=== PATIENT | female | born 1990 ===

== ENCOUNTER 2017-05-29 15:12 | Outpatient (CLI) | payer BC ==
[~2017-05-29] VITALS: Ht 165.1 cm; Wt 49.1 kg
[2017-05-29 15:23] VITALS: BP 115/56; PULSE 72; RESP 16; Ht 165.1 cm; Wt 49.1 kg
--- NOTE | 2017-05-29 18:08 | PN ---
Date/Time of Note Date/Time of Note DATE: 05/29/17 TIME: 18:07 Assessment/Plan Assessment/Plan Assessment/Plan [facility] Progress Note Date of Service: 05/29/17 Today's Impression & Plan: Overall doing well post op without major issues. No major wound problems. With above assessment, I've recommended the following for today: 1. F/u with PCP 2. F/u with us prn Nature of presenting problem: Moderate risk Thank you again for your great care of this very pleasant patient and wonderful family. If there are any questions, please feel free to call me at [phone]. Disclaimer: Inadvertent spelling or grammatical errors are likely due to EHR/ dictation software use and do not reflect on the overall quality of patient care. Updated Clinical Summary: A very pleasant and otherwise healthy 26-year-old lady without significant prior known past medical history admitted through the emergency department to [facility] on 05/16/2017 with signs and symptoms consistent with acute appendicitis. Subjective: No major events or complaints; no abd pain and under control with medications; no n/v/d; no sob or cp; + flatus; + BM and normal; + activity Objective: Vitals: See below Exam: GENERAL: On exam, the patient was sitting in a chair and appeared to be comfortable and in no acute distress. ABDOMEN: Soft, nontender and nondistended. Incisions are clean, dry and intact without any evidence of erythema, edema, discharge, or hernia. There are no peritoneal signs or guarding. SKIN: Skin appears to be pink and feels warm to touch. NEUROLOGIC: Patient is awake, alert, and follows commands appropriately. Exam/Review of Systems Vital Signs Vitals Vital Signs Date Time Temp Pulse Resp B/P Pulse Ox O2 Delivery O2 Flow Rate FiO2 05/29/17 15:23 98.8 72 16 115/56 94 Room Air ALYCE DAVIDSON M.D. May 29, 2017 18:08
== END 2017-05-29 16:50 | disposition home or self-care (01) ==
LOC: HPC 15:12
PROVIDERS: ATTEND Transplant Surgery
DX: K37 Unspecified appendicitis (principal)
CPT/HCPCS: G0463